=== PATIENT | female | born 1940 | race Caucasian/White ===

== ENCOUNTER 2024-05-19 15:09 | Inpatient (IN) | payer OTHER ==
[~2024-05-19] VITALS: Ht 162.6 cm; Wt 59.0 kg
[2024-05-19 15:41] VITALS: BP 123/86; PULSE 125; RESP 20; TEMP 98.7; O2SAT 97
[2024-05-19] MEDS ORDERED: NACL 0.9% 1,000 ML IV SCH (15:55)
[2024-05-19 16:19] LABS: BASOPHILS % (AUTO) 0.2 % (0.0-2.0); HEMATOCRIT 36.5 % (36-48); HEMOGLOBIN 12.4 g/dL (12.0-16.0); LYMPHOCYTES # (AUTO) 1.2 K/uL (2.5-16.5); LYMPHOCYTES % (AUTO) 13.5 % (20.5-51.1); MEAN CORPUSCULAR HEMOGLOBIN 31 pg (27-31); MEAN CORPUSCULAR HGB CONC 34 g/dL (33-37); MEAN CORPUSCULAR VOLUME 90.1 fL (80-94); MONOCYTES # (AUTO) 0.5 K/uL (0.8-1.0); NEUTROPHILS # (AUTO) 7.2 K/uL (1.8-7.7); NEUTROPHILS % (AUTO) 80.3 % (42.2-75.2); PLATELET COUNT (AUTO) 344 K/uL (140-450); RED BLOOD CELL COUNT(AUTO) 4.05 MIL/uL (4.20-5.40); RED CELL DISTRIBUTION WIDTH 13.5 % (11.6-13.7)
[2024-05-19 16:27] LABS: ANION GAP 9.2 (8-16); CALCIUM 9.9 mg/dL (8.5-10.1); CARBON DIOXIDE 32.2 mmol/L (21-32); CHLORIDE 101 mmol/L (98-107); CREATININE 0.8 mg/dL (0.6-1.3); GLUCOSE 99 mg/dL (74-106); POTASSIUM 3.4 mmol/L (3.5-5.1); SODIUM SERUM 139 mmol/L (136-145); UREA NITROGEN, BLOOD 17 mg/dL (7-18)
[2024-05-19 16:29] LABS: APPEARANCE,URINE CLEAR (CLEAR); BILIRUBIN,URINE NEGATIVE (NEGATIVE); BLOOD, URINE NEGATIVE (NEGATIVE); COLOR,URINE YELLOW (YELLOW); LEUKOCYTE ESTERASE ,URINE 1+ (NEGATIVE); NITRITE, URINE NEGATIVE (NEGATIVE); PH,URINE 6.5 (5.0-9.0); PROTEIN,URINE NEGATIVE (NEGATIVE); UGLUCOSE NEGATIVE (NEGATIVE); UROBILINOGEN,URINE 0.2 EU/dL (0.2 - 1)
[2024-05-19 16:32] LABS: FLU A ANTIGEN negative (NEGATIVE); FLU B ANTIGEN NEGATIVE (NEGATIVE)
[2024-05-19 16:36] LABS: LACTIC ACID 1.5 mmol/L (0.4-2.0)
[2024-05-19 16:37] LABS: BACTERIA,URINE 1+ /HPF (None Seen); MUCUS,URINE 1+ /LPF (None Seen); RBC,URINE 0-5 /HPF (0-5); SQUAMOUS EPITHELIAL CELL,UR 20-50 /LPF (0-3 (FEW)); TRICHOMONAS,URINE None Seen /HPF (None Seen); YEAST,URINE None Seen /HPF (None Seen)
[2024-05-19 16:38] LABS: FINE GRANULAR CASTS,URINE 0-10 /LPF (None Seen); URINE AMORPHOUS URATE 1+ /HPF (None Seen)
[2024-05-19] MEDS ORDERED: cefTRIAXone 1,000 MG VIAL ONE (16:43)
[2024-05-19] MEDS: cefTRIAXone 1,000 MG in DEXT 5% MINI-BAG PLUS 50 ML IV ONE (16:48)
--- NOTE | 2024-05-19 17:27 | NUR ---
84 Y/O FEMALE BIB FAMILY WITH C/O HAVING FEVER/CHILLS SINCE EPIDURAL INJECTIONS WERE RECEIVED ON 05/14/24. PT ALERT AND ORIENTED TO PERSON, PLACE, TIME, AND SITUATION. ORAL TEMP 98.5 UPON ASSESSMENT. PT DENIES ANY PAIN, CHEST PAIN, SOB, CHILLS, N/V/D. DAUGHTER AT BEDSIDE. NKA PMHX: COPD ON 2L VIA NC, HTN; POST POLIO
[2024-05-19 18:06] VITALS: O2SAT 94
[2024-05-19] MEDS ORDERED: ZOLPIDEM 5 MG TAB PO PRN (18:10)
[2024-05-19] MEDS ORDERED: ONDANSETRON 4 MG/2 ML VIAL IM/IVP PRN (18:10)
[2024-05-19] MEDS ORDERED: ACETAMINOPHEN 325 MG TAB PO PRN (18:10)
[2024-05-19] MEDS ORDERED: HYDROcodone/APAP 7.5/325 MG 1 TAB PO PRN (18:10)
[2024-05-19] MEDS ORDERED: guaiFENesin DM 200/20 MG-10 ML 10 ML UDC PO PRN (18:10)
[2024-05-19] MEDS ORDERED: INSULIN LISPRO SLIDING SCALE 100 UNITS/ML VIAL SUBQ PRN (18:15)
[2024-05-19] MEDS ORDERED: DEXTROSE 50% 50 ML SYR IVP PRN (18:15)
[2024-05-19] MEDS ORDERED: PRED10TA5 PO (18:19)
[2024-05-19] MEDS ORDERED: FURO20TA8 PO (18:19)
[2024-05-19] MEDS ORDERED: LEVO50TA11 (18:19)
[2024-05-19] MEDS ORDERED: DILT30TA18 PO (18:19)
[2024-05-19] MEDS ORDERED: SYN.05 PO (18:22)
--- NOTE | 2024-05-19 18:30 | NUR ---
Patient will be admitted to care of Miladys Morrison MD. Admited to tele. Will go to room 110A. Belongings list completed. Report to Alivia HERNADEZ.
--- NOTE | 2024-05-19 18:50 | NUR ---
RECEIVED PT FROM ER. REPORT BY FUNMILAYO HERNÁNDEZ. TRANSPORTED VIA GURNEY. PLACED IN BED COMFORTABLY. ALERT AND ORIENTED X 4. RESP. EVEN AND UNLABORED. ON 2L/NC. PIV TO RAC 20G. SKIN INTACT. INCONTINENT TO BOWEL AND BLADDER. NO C/O PAIN OR DISCOMFORT. CONT. PLAN OF CARE.
[2024-05-19] MEDS: NACL 0.9% 1,000 ML IV SCH (19:04)
--- NOTE | 2024-05-19 19:18 | NUR ---
ENDORSED TO FREIGHT SERVICE INSPECTOR FOR CONTINUITY OF CARE. REMAINS STABLE.
--- NOTE | 2024-05-19 19:19 | NUR ---
REPORT GIVEN BY AM NURSE FOR CONTINUITY OF CARE, PT A /O X4, PT DENIES PAIN, DISCOMFORT, RESPIRATION EQUAL, NON LABORED, O2 @2L NC, IV RIGHT AC 20 G , NS @ 60ML/HR, BED IN LOWEST POSITION, RAILS UP X2, CALL LIGHT WITHIN REACH, FREQUENT ROUNDS, COMMUNICATION BOARD UPDATED, WILL CONTINUE TO MONITOR.[email or web address]
[2024-05-19 20:00] VITALS: BP 131/74; PULSE 68; PULSE 80; RESP 18; TEMP 96.7; O2SAT 95
[2024-05-19] MEDS: POTASSIUM CHLORIDE 10 MEQ TABER PO PRN (20:08)
--- NOTE | 2024-05-19 20:08 | NUR ---
K LEVEL 3.4 K DUR GIVEN ORDERED, PT ABLE TO SWALLOW WITHOUT DIFFICULTY, WILL CONTINUE TO MONITOR.[email or web address]
[2024-05-19] MEDS: BLOOD GLUCOSE MONITORING 1 DEV DEV FS SCH (20:12)
--- NOTE | 2024-05-19 22:00 | NUR ---
FOR BS 99 NO COVERAGE ORDERED, PT TOLERATED ACTIVITY WELL.[email or web address]
[2024-05-19 23:09] VITALS: O2SAT 98
[2024-05-20] VITALS (10 sets, daily range): BP systolic 131–150; BP diastolic 69–81; PULSE 62–94; RESP 16–18; TEMP 97.2–98.3; O2SAT 94–99
--- NOTE | 2024-05-20 02:36 | NUR ---
PT SLEEPING, RESPIRATION EQUAL, NON LABORED, O2 @ 2L NC, COMPRESSION STOCKINGS INTACT, CALL LIGHT WITHIN REACH, WILL CONTINUE TO MONITOR.[email or web address]
[2024-05-20 06:29] LABS: BASOPHILS % (AUTO) 0.4 % (0.0-2.0); EOSINOPHILS % (AUTO) 0.6 % (0.0-4.0); HEMATOCRIT 32.8 % (36-48); HEMOGLOBIN 11.1 g/dL (12.0-16.0); LYMPHOCYTES # (AUTO) 2.6 K/uL (2.5-16.5); LYMPHOCYTES % (AUTO) 35.4 % (20.5-51.1); MEAN CORPUSCULAR HEMOGLOBIN 31 pg (27-31); MEAN CORPUSCULAR HGB CONC 34 g/dL (33-37); MEAN CORPUSCULAR VOLUME 90.7 fL (80-94); MONOCYTES # (AUTO) 0.5 K/uL (0.8-1.0); MONOCYTES % (AUTO) 7.4 % (1.7-9.3); NEUTROPHILS # (AUTO) 4.1 K/uL (1.8-7.7); NEUTROPHILS % (AUTO) 56.2 % (42.2-75.2); PLATELET COUNT (AUTO) 286 K/uL (140-450); RED BLOOD CELL COUNT(AUTO) 3.61 MIL/uL (4.20-5.40); RED CELL DISTRIBUTION WIDTH 13.9 % (11.6-13.7); WHITE BLOOD COUNT (AUTO) 7.3 K/uL (4.8-10.8)
[2024-05-20 06:48] LABS: ALANINE AMINOTRANSFERASE 19 U/L (12-78); ALBUMIN 2.4 g/dL (3.4-5.0); ALKALINE PHOSPHATASE 63 U/L (50-136); ASPARTATE AMINOTRANSFERASE 14 U/L (15-37); CARBON DIOXIDE 32.6 mmol/L (21-32); CHLORIDE 107 mmol/L (98-107); CREATININE 0.7 mg/dL (0.6-1.3); GLUCOSE 90 mg/dL (74-106); POTASSIUM 3.6 mmol/L (3.5-5.1); SODIUM SERUM 143 mmol/L (136-145); TOTAL BILIRUBIN 0.3 mg/dL (0.0-1.0); TOTAL PROTEIN, SERUM 5.2 g/dL (6.4-8.2); UREA NITROGEN, BLOOD 12 mg/dL (7-18)
--- NOTE | 2024-05-20 06:49 | NUR ---
FOR BS 81 NO COVERAGE ORDERED, PT TOLERATED ACTIVITY WELL, NO S/S OF DISTRESS NOTED. CALL LIGHT WITHIN REACH.[email or web address]
--- NOTE | 2024-05-20 07:16 | NUR ---
ASSUMED CONTINUITY OF CARE. INITIAL ASSESSMENT DONE. KEEP COMFORTABLE ON BED EXPLAINED DIAGNOSIS, PLAN OF CARE, PAIN MANAGEMENT TEACHING, USE OF CALL LIGHT/BED/TV/BATHROOM. VERBALIZED UNDERSTANDING. FALL PRECAUTION APPLIED. CALL LIGHT WITHIN REACH.
--- NOTE | 2024-05-20 07:17 | NUR ---
REPORT GIVEN TO AM NURSE TANISHA HERNADEZ FOR CONTINUITY OF CARE, [email or web address]
--- NOTE | 2024-05-20 08:00 | NUR ---
Patient's Plan of Care was discussed and reviewed with FACILITY ADMINISTRATOR: TANISHA CORREIA
[2024-05-20] MEDS: PANTOPRAZOLE 40 MG TABEC PO SCH (08:29)
[2024-05-20] MEDS ORDERED: cefTRIAXone 1,000 MG in LIDOCAINE MPF 1% 2.1 ML IM SCH (09:00)
[2024-05-20] MEDS ORDERED: VANCOMYCIN PER PHARMACY MC SCH (09:05)
--- NOTE | 2024-05-20 09:18 | NUR ---
DR. ARITA CAME AND SEEN PT..
[2024-05-20] MEDS: AZITHROMYCIN 500 MG in DEXTROSE 5% 250 ML IV SCH (09:44)
[2024-05-20] MEDS: VANCOMYCIN 1.25GM PREMIX 250 ML IV SCH (11:02)
--- NOTE | 2024-05-20 11:20 | NUR ---
PHYSICAL THERAPIST CRESCENCIO CAME FOR EVAL AND TREATMENT.
--- NOTE | 2024-05-20 14:21 | NUR ---
DRAPERY SEAMSTRESSMARK FINE CAME FOR PT. ECHO PROCEDURE AT BEDSIDE.
--- NOTE | 2024-05-20 18:50 | NUR ---
ASSISTED TO BATHROOM. VOIDED WELL. NO C/O PAIN. NO C/O SOB. BROUGHT BACK TO BED AND KEEP COMFORTABLE. CALL LIGHT WITHIN REACH.
--- NOTE | 2024-05-20 19:00 | NUR ---
RECEIVED PT IN BED AWAKE, ALERT AND ORIENTED X 4. DENIES PAIN AT THIS TIME. NO ACUTE RESPIRATORY DISTRESS. SKIN WARM AND DRY TO TOUCH. SAFETY PRECAUTIONS IN PLACE, CLL LIGHT WITHIN REACH, ENCOURAGED TO CALL IF ASSISTANCE IS NEEDED, PT VERBALLY AGREED.
[2024-05-21] VITALS (11 sets, daily range): BP systolic 131–157; BP diastolic 73–91; PULSE 70–106; RESP 16–20; TEMP 97.3–98.1; O2SAT 95–98
--- NOTE | 2024-05-21 02:13 | NUR ---
ROUNDING DONE. PT IS ASLEEP. BREATHING EVEN AND UNLABORED. CALL LIGHT WITHIN REACH.
[2024-05-21 06:39] LABS: BASOPHILS % (AUTO) 0.5 % (0.0-2.0); EOSINOPHILS # (AUTO) 0.1 K/uL (0-0.4); HEMOGLOBIN 11.3 g/dL (12.0-16.0); LYMPHOCYTES # (AUTO) 2.4 K/uL (2.5-16.5); LYMPHOCYTES % (AUTO) 34.2 % (20.5-51.1); MEAN CORPUSCULAR HEMOGLOBIN 31 pg (27-31); MEAN CORPUSCULAR HGB CONC 34 g/dL (33-37); MONOCYTES # (AUTO) 0.6 K/uL (0.8-1.0); MONOCYTES % (AUTO) 8.2 % (1.7-9.3); NEUTROPHILS # (AUTO) 3.9 K/uL (1.8-7.7); NEUTROPHILS % (AUTO) 56.1 % (42.2-75.2); PLATELET COUNT (AUTO) 282 K/uL (140-450); RED BLOOD CELL COUNT(AUTO) 3.63 MIL/uL (4.20-5.40); RED CELL DISTRIBUTION WIDTH 13.9 % (11.6-13.7)
--- NOTE | 2024-05-21 06:41 | NUR ---
PATIENT IS ASLEEP. NO DISTRESS NOTED. ALL NEEDS ATTENDED TO. SAFETY PRECAUTIONS MAINTAINED DURING THE SHIFT, CALL LIGHT REMAINS WITHIN REACH.
[2024-05-21 07:03] LABS: ALANINE AMINOTRANSFERASE 20 U/L (12-78); ALBUMIN 2.4 g/dL (3.4-5.0); ALKALINE PHOSPHATASE 62 U/L (50-136); ANION GAP 7.4 (8-16); ASPARTATE AMINOTRANSFERASE 16 U/L (15-37); CALCIUM 9.4 mg/dL (8.5-10.1); CARBON DIOXIDE 31.5 mmol/L (21-32); CHLORIDE 107 mmol/L (98-107); CREATININE 0.7 mg/dL (0.6-1.3); GLUCOSE 99 mg/dL (74-106); POTASSIUM 3.9 mmol/L (3.5-5.1); SODIUM SERUM 142 mmol/L (136-145); TOTAL BILIRUBIN 0.4 mg/dL (0.0-1.0); TOTAL PROTEIN, SERUM 5.3 g/dL (6.4-8.2); UREA NITROGEN, BLOOD 12 mg/dL (7-18)
[2024-05-21] MEDS: FUROSEMIDE 20 MG TAB PO SCH (08:33)
[2024-05-21] MEDS: LEVOTHYROXINE 0.05 MG TAB PO SCH (08:33)
[2024-05-21] MEDS: predniSONE 10 MG TAB PO SCH (08:34)
[2024-05-21] MEDS: ALBUTEROL SULFATE/IPRATROPIU 3 ML SOL IH PRN (10:05)
--- NOTE | 2024-05-21 10:05 | NUR ---
RECEIVED ON SUPPLEMENTAL OXYGEN AT 2 LPM VIA NC SATURATION 95%; EDUCATION PROVIDED TO INCENTIVE SPIROMETRY (IS) TOLERATED PROCEDURE WELL WITHOUT ADVERSE REACTIONS NOTED ENCOURAGED PATIENT TO USE IS EVERY 1-2 HOURS WHILE AWAKE
--- NOTE | 2024-05-21 10:24 | NUR ---
RUBI WISE CAME AND SEEN PT..
--- NOTE | 2024-05-21 10:46 | NUR ---
PATIENT HAS BEEN SCREENED AND CATEGORIZED LOW NUTRITION RISK. PATIENT WILL BE SEEN WITHIN 7 DAYS OF ADMISSION. 05/26/[address]
--- NOTE | 2024-05-21 11:08 | NUR ---
ASSISTED PT. TO GO TO BATHROOM. TOLERATED WELL. NO C/O SOB. KEEP FREE FROM INJURY.
--- NOTE | 2024-05-21 19:02 | NUR ---
REPORT GIVEN TO ALKA NGUYEN. IN STABLE CONDITION.
--- NOTE | 2024-05-21 19:05 | NUR ---
RECEIVED PT IN BED AWAKE, ALERT AND ORIENTED X 4. FAMILY MEMBERS AT THE BEDSIDE. DENIES PAIN AT THIS TIME. NO ACUTE RESPIRATORY DISTRESS NOTED. SKIN WARM AND DRY TO TOUCH. SAFETY PRECAUTIONS IN PLACE, CALL LIGHT WITHIN REACH.
[2024-05-21] MEDS: DOCUSATE SODIUM 100 MG GELCAP PO PRN (19:58)
[2024-05-22] VITALS (9 sets, daily range): BP systolic 123–152; BP diastolic 69–85; PULSE 68–105; RESP 18; TEMP 97.5–98; O2SAT 96–97
--- NOTE | 2024-05-22 01:22 | NUR ---
ROUNDING DONE. PATIENT IS ASLEEP. BREATHING EVEN AND UNLABORED. CALL LIGHT WITHIN REACH
--- NOTE | 2024-05-22 06:26 | NUR ---
PATIENT IS ASLEEP. NO S/SX OF PAIN NOR DISCOMFORT. ALL NEEDS ATTENDED TO. SAFETY PRECAUTIONS MAINTAINED DURING THE SHIFT, CALL LIGHT REMAINS WITHIN REACH.
[2024-05-22 06:54] LABS: BASOPHILS % (AUTO) 0.3 % (0.0-2.0); EOSINOPHILS # (AUTO) 0.1 K/uL (0-0.4); EOSINOPHILS % (AUTO) 0.7 % (0.0-4.0); HEMATOCRIT 33.1 % (36-48); HEMOGLOBIN 11.2 g/dL (12.0-16.0); LYMPHOCYTES # (AUTO) 2.9 K/uL (2.5-16.5); LYMPHOCYTES % (AUTO) 40.9 % (20.5-51.1); MEAN CORPUSCULAR HEMOGLOBIN 31 pg (27-31); MEAN CORPUSCULAR HGB CONC 34 g/dL (33-37); MEAN CORPUSCULAR VOLUME 90.6 fL (80-94); MONOCYTES # (AUTO) 0.5 K/uL (0.8-1.0); MONOCYTES % (AUTO) 6.9 % (1.7-9.3); NEUTROPHILS # (AUTO) 3.7 K/uL (1.8-7.7); NEUTROPHILS % (AUTO) 51.2 % (42.2-75.2); PLATELET COUNT (AUTO) 306 K/uL (140-450); RED BLOOD CELL COUNT(AUTO) 3.65 MIL/uL (4.20-5.40); RED CELL DISTRIBUTION WIDTH 13.7 % (11.6-13.7); WHITE BLOOD COUNT (AUTO) 7.2 K/uL (4.8-10.8)
[2024-05-22 07:22] LABS: ALANINE AMINOTRANSFERASE 28 U/L (12-78); ALBUMIN 2.4 g/dL (3.4-5.0); ALKALINE PHOSPHATASE 62 U/L (50-136); ANION GAP 6.5 (8-16); ASPARTATE AMINOTRANSFERASE 16 U/L (15-37); CALCIUM 9.3 mg/dL (8.5-10.1); CARBON DIOXIDE 32.6 mmol/L (21-32); CHLORIDE 107 mmol/L (98-107); CREATININE 0.7 mg/dL (0.6-1.3); GLUCOSE 99 mg/dL (74-106); POTASSIUM 4.1 mmol/L (3.5-5.1); SODIUM SERUM 142 mmol/L (136-145); TOTAL BILIRUBIN 0.3 mg/dL (0.0-1.0); TOTAL PROTEIN, SERUM 5.5 g/dL (6.4-8.2); UREA NITROGEN, BLOOD 13 mg/dL (7-18)
--- NOTE | 2024-05-22 07:30 | NUR ---
RECEIVED REPORT FROM SOUND RANGING CREWMEMBER NURSE. PT IS ALERT AND ORIENTED (AOX4). ABLE TO AMBULATE WITH ASSIST. ON 2L NC, NO SOB NOTED. PT IS ON MECHANICAL DIET. PT HAS PERIPHERAL IV ON RIGHT AC 2OG; SALINE LOCK AND INTACT. SKIN INTACT. BED IS LOCK AND LOW POSITION. CALL LIGHT WITHIN REACH.
--- NOTE | 2024-05-22 11:40 | NUR ---
STEPHANIE VENEGAS MADE ROUND AND ASSESSED PT AT BEDSIDE. REVIEWED LAB DONE. GIVEN DISCHARGE ORDER. CALLED DAUGHTER (ALICE FIHS LAMBERT) AND MADE AWARE DISCHARGE ORDER.
--- NOTE | 2024-05-22 13:10 | NUR ---
PT WENT HOME WITH SON. DISCHARGE TO HOME. NO SOB AND NO DISTRESS.
== END 2024-05-22 13:05 | disposition home or self-care (01) | DRG 871 ==
LOC: MED 15:09 → MTU 18:11
PROVIDERS: ADMIT Student in an Organized Health Care Education/Training Program; ATTEND Student in an Organized Health Care Education/Training Program
DX: A41.9 Sepsis, unspecified organism (principal); E43 Unspecified severe protein-calorie malnutrition; J15.69 Pneumonia due to other Gram-negative bacteria; J15.9 Unspecified bacterial pneumonia; Z20.822 Contact with and (suspected) exposure to COVID-19; E03.9 Hypothyroidism, unspecified; I51.7 Cardiomegaly; Z90.49 Acquired absence of other specified parts of digestive tract; Z79.899 Other long term (current) drug therapy; Z68.22 Body mass index [BMI] 22.0-22.9, adult
CPT/HCPCS: 36415; 71045; 80048; 80053; 81001; 82948; 83605; 83880; 84484; 85025; 87040; 87081; 87086; 93005; 94010; 94640; 96374; 97116; 97163-GP; 99285; J0456; J0696; J3372; J7060; J7512; Q0092